=== PATIENT | male | born 1955 | race Caucasian/White ===

== ENCOUNTER → 2020-06-27 11:56 | Outpatient (CLI) | payer OTHER, SELFPAY ==
--- NOTE | ~2020-06-27 | XR_ITS ---
XR chest 2V 06/27/2020 12:08 Indication: Cough and shortness of breath. History of smoking. Procedure: 2 view chest Comparison: 08/05/2018 Findings: Heart size normal. No focal air space disease, pulmonary edema, pleural effusion or suspect ed pneumothorax. There is atherosclerosis. Impression: 1: No acute cardiopulmonary disease. Reviewed, dictated and finalized at location A. NAVIGATOR Impression: 1: No acute cardiopulmonary disease.
== END ==
PROVIDERS: PCP Emergency Medicine; Visit Provider Emergency Medicine
DX: R05 Cough (principal); R06.02 Shortness of breath; R55 Syncope and collapse; Z87.891 Personal history of nicotine dependence
CPT/HCPCS: 71046

== ENCOUNTER 2021-02-06 13:06 | Emergency (ER) | payer OTHER, SELFPAY ==
--- NOTE | ~2021-02-06 | XR_ITS ---
EXAMINATION: XR chest 2V 02/06/2021 13:38 INDICATION: Left upper chest PROCEDURE: 2 view chest COMPARISON: 06/27/2020 FINDINGS: The lungs are clear. The cardiomediastinal silhouette is within normal limits. There are no pleural effusions. There is no pneumothorax suspected. IMPRESSION: 1: NO ACUTE CARDIOPULMONARY DISEASE. Reviewed, dictated and finalized at location A.
[2021-02-06 13:19] VITALS: BP 160/71; PULSE 66; RESP 18; TEMP 36.4; O2SAT 98
--- NOTE | 2021-02-06 13:45 | ED.GENADULT ---
HPI - General Adult General Chief complaint: Upper Respiratory Infection Stated complaint: Possible Cracked Rib Time Seen by Provider: 02/06/21 13:47 Source: patient and RN notes reviewed Mode of arrival: ambulatory Limitations: no limitations History of Present Illness HPI narrative: 65-year-old male presents with concern for 3 to 4-week history of sinus congestion, nasal drainage, sinus pressure and pain. Reports left rib and back pain with coughing, bending, moving his left arm. He reports tenderness to touch in the left upper back. He denies any back injury or trauma. Reports pain is exacerbated by coughing. He reports he has been taking Sudafed and nasal spray with temporary partial relief of symptoms. He denies shortness of breath, fever, body aches. Reports malaise. Reports he was treated with amoxicillin 3 weeks ago with temporary relief. MD complaint: Rib pain Related Data Home Medications Medication Instructions Recorded Confirmed losartan 100 mg PO DAILY 02/06/21 02/06/21 Allergies Allergy/AdvReac Type Severity Reaction Status Date / Time No Known Allergies Allergy Unverified 02/06/21 13:29 Review of Systems Review of Systems: CONSTITUTIONAL: Denies malaise, chills, sweats, or fever. ENT: Reports rhinorrhea, congestion, sinus pain. Denies otalgia or sore throat. CARDIOVASCULAR: Denies chest pain, palpitations, or edema. RESPIRATORY: Reports cough, chest wall pain with coughing. Denies dyspnea. GASTROINTESTINAL: Denies abdominal pain, nausea, vomiting, diarrhea SKIN: Denies bruising, redness MUSCULOSKELETAL: Reports left upper back pain, and rib pain reproducible with movement of the left arm, bending. Denies myalgia. NEUROLOGIC: Denies numbness, weakness, or headache. All systems reviewed & are unremarkable except as noted in HPI and below PMFSH Social History Social History Smoking status: Never smoker Alcohol intake: never Comments At time of signature, agree with nursing past medical, surgical, social and family history. There is no relevant family history pertinent to the presenting complaint Exam Narrative: GENERAL: Well-appearing, well-nourished, and in no acute distress. HEAD: Normocephalic EYES: PERRLA, conjunctivae clear, sclera slightly injected bilaterally ENT: Nares clear, turbinates edematous and erythematous, purulent discharge, sinus tenderness. Mucous membranes moist. TM pearly matthew with dull light reflex bilaterally; no tragal tenderness. Oropharynx not erythematous without lesions. Tonsils not enlarged and without exudate, no drooling, no hoarseness, no trismus, uvula midline. NECK: Supple. No lymphadenopathy CHEST: Clear to auscultation, breath sounds equal. No wheezing, rhonchi, rales, or stridor. No respiratory distress, speaks in full sentences. HEART: Regular rate and rhythm. No murmur heard. Musculoskeletal: Tenderness palpation to the left upper rib area, no bruising, redness, swelling SKIN: Warm, dry, no rash. NEURO: Alert and oriented x3. PSYCH: Normal mood and affect Course Course Emergency Course: Patient is aware of diagnosis, understands and agrees to treatment plan. Anticipatory guidance given. Patient agrees to follow-up as directed and is aware of reasons to seek care at the emergency department. Portions of this record may have been created with voice recognition software Vital Signs Vital signs: Vital Signs Temperature 97.5 F L 02/06/21 13:19 Pulse Rate 66 02/06/21 13:19 Respiratory Rate 18 02/06/21 13:19 Blood Pressure 160/71 H 02/06/21 13:19 Pulse Oximetry 98 02/06/21 13:19 Temperature 97.5 F L 02/06/21 13:19 Pulse Rate 66 02/06/21 13:19 Respiratory Rate 18 02/06/21 13:19 Blood Pressure 160/71 H 02/06/21 13:19 Pulse Oximetry 98 02/06/21 13:19 Reviewed. Medical Decision Making MDM Narrative Medical decision making narrative: No evidence of ACS, pericarditis, myocarditis, pulmonary embolism, pneumothorax, pneumo
== END 2021-02-06 14:12 | disposition home or self-care (01) ==
PROVIDERS: Emergency Provider Nurse Practitioner; PCP Emergency Medicine
DX: J32.9 Chronic sinusitis, unspecified (principal); J40 Bronchitis, not specified as acute or chronic; Z20.822 Contact with and (suspected) exposure to COVID-19; I10 Essential (primary) hypertension; M19.90 Unspecified osteoarthritis, unspecified site; Z96.651 Presence of right artificial knee joint
CPT/HCPCS: 71046; 87426; 99213; C9803; G0463

== ENCOUNTER → 2021-02-28 14:57 | Outpatient (CLI) | payer OTHER, SELFPAY ==
--- NOTE | ~2021-02-28 | XR_ITS ---
EXAMINATION: XR ribs LT 2V INDICATION: Upper back and rib pain TECHNIQUE: 3 views of the left ribs were obtained. COMPARISON: 02/06/2021 FINDINGS: No displaced rib fracture is identified. The visualized portions of the left hemithorax are unremarkable. The heart size is normal. There is mild osteoarthritis of the glenohumeral and acromio clavicular joints. IMPRESSION: 1. No evidence of displaced rib fracture. Reviewed, dictated and finalized at location B.
--- NOTE | ~2021-02-28 | XR_ITS ---
XR thoracic spine 3V 02/28/2021 15:31 Indication: Back pain Procedure: 3 views of the thoracic spine Comparison: 03/28/2019 Findings: There is mild levoscoliosis of the thoracic spine. There is mild multilevel degenerative di sc disease. Small marginal osteophytes are present in the lower thoracic spine. Pedicles are intact. No significant paraspinal soft tissue abnormality. Surrounding osseous structures within normal limit s. Impression: 1: Mild thoracic spondylosis with levoscoliosis. Reviewed, dictated and finalized at location A. Impression: 1: Mild thoracic spondylosis with levoscoliosis.
== END ==
LOC: EXPCRAD 14:58
PROVIDERS: PCP Emergency Medicine; Visit Provider Emergency Medicine
DX: M54.6 Pain in thoracic spine (principal); M47.814 Spondylosis without myelopathy or radiculopathy, thoracic region; M41.84 Other forms of scoliosis, thoracic region
CPT/HCPCS: 71100; 72072

== ENCOUNTER → 2021-10-16 14:01 | Outpatient (CLI) | payer OTHER, MEDICARE, SELFPAY ==
--- NOTE | ~2021-10-16 | XR_ITS ---
XR chest 2V DATE: 10/16/2021 14:24 INDICATION: Cough for one week TECHNIQUE: 2 views COMPARISON: 02/06/2021 2 view chest FINDINGS: Normal heart size. No hilar or mediastinal enlargement. No pulmonary infiltrate or consolid ation, pleural effusion or pulmonary vascular congestion or pneumothorax. There is degenerative spurring of the thoracic spine and mild levoscoliosis. IMPRESSION: No active cardiopulmonary disease Scoliosis and degenerative change of the thoracic spine Reviewed, dictated and finalized at location A.
== END ==
PROVIDERS: PCP Emergency Medicine; Visit Provider Emergency Medicine
DX: R05.9 Cough, unspecified (principal); M41.9 Scoliosis, unspecified
CPT/HCPCS: 71046

== ENCOUNTER → 2022-03-19 13:10 | Outpatient (CLI) | payer OTHER, MEDICARE, SELFPAY ==
--- NOTE | ~2022-03-19 | XR_ITS ---
EXAMINATION: XR hip LT min 2V, XR hip RT min 2V DATE: 03/19/2022 13:36 INDICATION: Bilateral hip pain TECHNIQUE: 1. Anteroposterior, frog leg and cross-table lateral views of the left hip were obtained. 2. Anteroposterior, frog leg and cross-table lateral views of the right hip were obtained. COMPARISON: 08/05/2018 FINDINGS: There is leftward angulation of the sacrococcygeal junction and coccyx unchanged since CT dated 04/07 which may be developmental or sequela of old trauma. Alignment is otherwise normal. No fracture or suspected avascular necrosis. Mild bilateral hip osteoarthritis, left greater than right. Mild to moderate bilateral sacroiliac osteoarthritis. There is a very thin 9 mm linear wire-like metallic fo reign body projecting over the soft tissues at the medial aspect of the proximal most right thigh on the majority of the images but not evident on the frog-leg lateral view of the right hip, potentially external to the patient. Soft tissues are otherwise unremarkable. IMPRESSION: 1. Mild bilateral hip and mild to moderate bilateral sacroiliac osteoarthritis. No acute osseous abno rmality. Reviewed, dictated and finalized at location A. IMPRESSION: 1. Mild bilateral hip and mild to moderate bilateral sacroiliac osteoarthritis. No acute osseous abnormality.
== END ==
PROVIDERS: PCP Emergency Medicine; Visit Provider Emergency Medicine
DX: M16.0 Bilateral primary osteoarthritis of hip (principal); M53.3 Sacrococcygeal disorders, not elsewhere classified
CPT/HCPCS: 73502

== ENCOUNTER → 2022-07-19 12:52 | Outpatient (CLI) | payer MEDICARE, SELFPAY ==
--- NOTE | ~2022-07-19 | XR_ITS ---
Right Shoulder Technique: AP and scapular Y views were obtained. Clinical History: Pain Findings: No fracture or dislocation is seen. Osseous alignment is anatomic. There is moderate degene rative change at the AC joint. Glenohumeral joint is unremarkable. Soft tissues are unremarkable. Impression: Moderate AC joint degenerative change. Reviewed, dictated and finalized at location . ERCIAL CREDIT SPECIALIST Impression: Moderate AC joint degenerative change.
== END ==
PROVIDERS: PCP Emergency Medicine; Visit Provider Emergency Medicine
DX: M19.011 Primary osteoarthritis, right shoulder (principal)
CPT/HCPCS: 73030

== ENCOUNTER → 2022-08-02 12:19 | Outpatient (CLI) | payer MEDICARE, SELFPAY ==
--- NOTE | ~2022-08-02 | XR_ITS ---
Right ankle Technique: AP, oblique, and lateral views were obtained. Clinical History: Pain Findings: No acute fracture or dislocation is seen. Osseous alignment is anatomic. Ankle mortise is i ntact. There is mild degenerative change at the talonavicular articulation. Soft tissues are otherwi se unremarkable. Impression: No fracture or dislocation. Mild degenerative change at the talonavicular articulation. Reviewed, dictated and finalized at location . 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 Mild degenerative change at the talonavicular articulation.
== END ==
PROVIDERS: PCP Emergency Medicine; Visit Provider Emergency Medicine
DX: M25.571 Pain in right ankle and joints of right foot (principal); R93.6 Abnormal findings on diagnostic imaging of limbs
CPT/HCPCS: 73610

== ENCOUNTER 2023-11-25 15:42 | Outpatient (CLI) | payer MEDICARE, SELFPAY ==
--- NOTE | ~2023-11-25 | XR_ITS ---
XR chest 2V 11/25/2023 16:10 Indication: Tobacco use Procedure: 2 view chest Comparison: Comparison to multiple prior studies sequentially, with oldest reviewed study dated 09/2020. Findings: Heart size normal. No focal air space disease, pulmonary edema, pleural effusion or suspect ed pneumothorax. No acute osseous abnormality. Impression: 1: No acute cardiopulmonary disease. Reviewed, dictated and finalized at location B. Impression: 1: No acute cardiopulmonary disease.
[2023-11-25 16:48] LABS: Hematocrit 47.5 % (42.0-52.0); Hemoglobin 15.6 g/dL (14.0-18.0); Mean Corpuscular HGB Conc 32.8 g/dl (32-36); Mean Corpuscular Hemoglobin 30.1 pg (26-34); Mean Corpuscular Volume 91.7 fl (80-100); Mean Platelet Volume 10.3 fl (7.4-10.4); Platelet Count Result 263 k/mm3 (150-375); Red Blood Count 5.18 M/mm3 (4.6-6.20); Red Cell Distribution Width 14.3 % (11.5-14.5); White Blood Count 9.3 K/mm3 (4.5-10.0)
[2023-11-25 17:02] LABS: Appearance Urine Clear (Clear); Bacteria Urine None Seen /hpf; Bilirubin Urine Negative (Negative); Blood Urine Negative (Negative); Color Urine Yellow (Yellow); Glucose Urine UA Negative (Negative); Ketones Urine Negative (Negative); Leukocyte Esterase Ur Negative LEU/UL (Negative); Nitrate Urine Negative (Negative); Non Pathogenic Casts 0-2; Protein Urine Trace mg/dL (Negative); RBC Urine 0-2 /hpf (0-2); Specific Grav Ur 1.015 (1.001-1.035); Squamous Epithelial Cell Urine None Seen /hpf (Few); Urobilinogen Urine 0.2 mg/dL (<2.0); WBC Urine 0-5 /hpf (0-3); pH Urine 5.5 (5.0-9.0)
[2023-11-25 17:03] LABS: Add Urine Microscopic? YES
[2023-11-25 17:05] LABS: Prothrombin Time 13.4 Seconds (11.1-14.7)
[2023-11-25 17:59] LABS: Alanine Aminotransferase 53 U/L (6-50); Albumin Level 4.2 g/dL (3.5-5.1); Alkaline Phosphatase 71 U/L (38-126); Amylase 72 U/L (30-110); Anion Gap 9 mmol/L (4-12); Aspartate Amino Transferase 45 U/L (17-59); Bilirubin,Total 0.5 mg/dL (0.2-1.3); Blood Urea Nitrogen 10 mg/dL (9-20); Calcium 8.6 mg/dL (8.4-10.2); Carbon Dioxide 22 mmol/L (22-30); Chloride 110 mmol/L (98-107); Estimated Glomerular Filt Rate > 60; Glucose 86 mg/dL (65-110); Potassium 3.6 mmol/L (3.4-5.0); Sodium 141 mmol/L (137-145)
[2023-11-25 18:27] LABS: Hepatitis B Surface Antigen Negative (Negative)
[2023-11-25 18:33] LABS: HAV RESULT Negative (Negative); Hepatitis B Core IgM Result Negative (Negative)
[2023-11-25 18:45] LABS: Hepatitis C Virus Antibody Negative (Negative)
== END 2023-11-25 15:43 | disposition home or self-care (01) ==
PROVIDERS: PCP Emergency Medicine; Visit Provider Emergency Medicine
DX: R10.11 Right upper quadrant pain (principal); F17.210 Nicotine dependence, cigarettes, uncomplicated
CPT/HCPCS: 36415; 71046; 80053; 80061; 80074; 81001; 82150; 85027; 85610

== ENCOUNTER → 2024-02-10 11:39 | Outpatient (CLI) | payer MEDICARE, SELFPAY ==
--- NOTE | ~2024-02-10 | XR_ITS ---
EXAMINATION: XR chest 2V Exam Date/Time: 02/10/2024 11:59 CDT HISTORY: LEFT ARM/NECK AND POSTERIOR CHEST PAIN. Comparison: 11/25/2023. RESULT: Lines, tubes, and devices: None. Lungs and pleura: Mild diffuse reticulonodular opacities and cuffing. Cardiomediastinal silhouette: Stable. Other: No acute osseous or upper abdominal finding. IMPRESSION: Pulmonary opacities may represent respiratory bronchiolitis in the appropriate clinical context. Reviewed, dictated and finalized at location K.
--- NOTE | ~2024-02-10 | XR_ITS ---
EXAMINATION: XR shoulder LT min 2V, XR humerus LT DATE: 02/10/2024 12:47 INDICATION: Left arm pain post fall 2 weeks prior TECHNIQUE: 1. AP internally and externally rotated, AP oblique externally rotated and transscapular Y views of t he left shoulder were obtained. 2. Internal and axillary rotated views the left humerus were obtained. COMPARISON: None FINDINGS: Normal alignment. 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 Mild osteoarthritis at the left amanuel ohumeral and elbow joints. Small heterotopic ossicle versus loose osteochondral body projecting near the lesser tuberosity. Small enthesophyte at the lateral epicondylar origin of the common extensor te ndon wad. Soft tissues are unremarkable. Visualized portion of the left lung are clear. IMPRESSION: No acute osseous abnormality. 2. 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 Reviewed, dictated and finalized at location A. IMPRESSION: No acute osseous abnormality. 2. 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
--- NOTE | ~2024-02-10 | XR_ITS ---
XR cervical spine 4-5V Ordering provider: Dylon Whitlock MD History: . LEFT ARM PAIN . Comparison: None. FINDINGS: VERTEBRAL BODIES: Normal height and alignment. No visible fracture or subluxation. The dens is intact . DISK SPACES: Narrowing of the disc C5-C6. Multilevel facet joint disease. Multilevel uncovertebral blaine int osteoarthritic changes. Narrowing of the right C5-C6 intervertebral foramen. Narrowing of the for roni at the levels of C3-C4, C4-C5 and C5-C6. PARASPINOUS SOFT TISSUES: No prevertebral soft tissue swelling. IMPRESSION: No acute osseous abnormality cervical spine. Degenerative disc changes at multiple levels. Reviewed, dictated and finalized at location A.
== END ==
PROVIDERS: PCP Emergency Medicine; Visit Provider Emergency Medicine
DX: M50.30 Other cervical disc degeneration, unspecified cervical region (principal); R91.8 Other nonspecific abnormal finding of lung field; M19.012 Primary osteoarthritis, left shoulder; M19.022 Primary osteoarthritis, left elbow
CPT/HCPCS: 71046; 72050; 73030; 73060